=== PATIENT | female | born 1980 | race Caucasian/White ===

== ENCOUNTER 2020-01-10 10:58 | Emergency (ER) | payer BC, SELFPAY ==
[2020-01-10 11:22] VITALS: BP 127/57; PULSE 101; RESP 18; TEMP 37.9; O2SAT 99
--- NOTE | 2020-01-10 12:00 | ED.URI ---
HPI - URI/Sore Throat General Chief Complaint: Upper Respiratory Infection Stated Complaint: Cold/Flu Time Seen by Provider: 01/10/20 12:33 Source: patient History of Present Illness HPI Narrative: Patient presents with nasal congestion and head pressure bilateral ear pain. Patient states she is taking Sudafed with minimal relief in her symptoms. No fever no cough no shortness of breath no chest pain. MD elicited complaint: cough, rhinorrhea and nasal congestion Related Data Home Medications Medication Instructions Recorded Confirmed metformin 1,000 mg PO BID 01/10/20 01/10/20 Allergies Allergy/AdvReac Type Severity Reaction Status Date / Time No Known Allergies Allergy Verified 01/10/20 11:21 Review of Systems Review of Systems: Narrative: CONSTITUTIONAL: Denies chills, or sweats. Reports fever and generalized body aches EYES: Denies visual changes, redness, or discharge. ENT: Denies otalgia. Reports nasal congestion runny nose and sore throat CARDIOVASCULAR: Denies chest pain, palpitations, or edema. RESPIRATORY: Denies dyspnea. Reports occasional cough GASTROINTESTINAL: Denies abdominal pain, nausea, vomiting, or diarrhea. GENITOURINARY: Denies dysuria or hematuria. SKIN: Denies rash or itching. MUSCULOSKELETAL: Denies back pain, joint pain, or myalgia. Reports generalized body aches NEUROLOGIC: Denies headache, numbness, or weakness. PSYCHIATRIC: Denies anxiety or depression. All systems reviewed & are unremarkable except as noted in HPI and below PMFSH Comments At time of signature, agree with nursing past medical, surgical, social and family history. There is no relevant family history pertinent to the presenting complaint Exam Narrative: Exam Narrative: GENERAL APPEARANCE: The patient is a well-developed, well-nourished , in no acute distress. SKIN: Skin is warm and dry without erythema, swelling or exudate. There is good turgor. No tenting. HEAD: Atraumatic. Normocephalic. No temporal or scalp tenderness. EYES: Moist and bright. Sclera and conjunctivae normal. No discharge. PERRLA. Extraocular motions intact. Gross visual acuity intact. EARS: Pinna is normal shape and contour. Clear external auditory canals. Left TM pearly lazo with good cone of light, no erythema or suppuration. Right TM moderate erythremia with bulging bilateral cerumen noted no gross hearing deficit. NOSE: pink, moist mucosa with good air movement. Clear rhinorrhea without nasal flaring. Septum midline. Mouth: moist mucous membranes. THROAT; mild erythema noted to posterior oropharynx with moderate postnasal drainage. Without exudate or ulceration.. Uvula midline. Normal movement of soft palate. NECK: Supple and nontender with full range of motion without discomfort. No meningeal signs. LUNGS: Equal and bilateral breath sounds without wheezes, rales or rhonchi. CHEST: The chest wall is without retractions or use of accessory muscles. HEART: Has a regular rate and rhythm without murmur, gallops, click or rub. ABDOMEN: Soft, nontender with positive active bowel sounds. No rebound tenderness. EXTREMITIES: Without cyanosis, clubbing or edema. Equal 2+ distal pulses and 2 second capillary refill noted. NEUROLOGIC: alert, active, developmentally normal for age. The patient moves all extremities with normal muscle strength. Normal muscle tone is noted. Normal coordination is noted. NO focal neurological findings noted. Course Vital Signs Vital signs: Vital Signs Temperature 37.9 C H 01/10/20 11:22 Pulse Rate 101 H 01/10/20 11:22 Respiratory Rate 18 01/10/20 11:22 Blood Pressure 127/57 L 01/10/20 11:22 Pulse Oximetry 99 01/10/20 11:22 Temperature 37.9 C H 01/10/20 11:22 Pulse Rate 101 H 01/10/20 11:22 Respiratory Rate 18 01/10/20 11:22 Blood Pressure 127/57 L 01/10/20 11:22 Pulse Oximetry 99 01/10/20 11:22 Please TONY schedule a followup visit with your personal physician for further evaluation and treatment. In
== END 2020-01-10 12:35 | disposition home or self-care (01) ==
PROVIDERS: Emergency Provider Nurse Practitioner Family
DX: J06.9 Acute upper respiratory infection, unspecified (principal); H66.91 Otitis media, unspecified, right ear; Z98.84 Bariatric surgery status
CPT/HCPCS: 99213; G0463

== ENCOUNTER 2021-04-23 11:44 | Emergency (ER) | payer BC, SELFPAY ==
[2021-04-23 11:49] VITALS: BP 110/60; PULSE 98; RESP 16; TEMP 37.2; O2SAT 98
--- NOTE | 2021-04-23 12:13 | ED.SKABFB ---
HPI - Skin/Abscess/Foreign Bdy General Chief complaint: Skin/Abscess/Foreign Body Stated complaint: rash Time Seen by Provider: 04/23/21 11:55 Source: patient, RN notes reviewed and old records reviewed Mode of arrival: ambulatory Limitations: no limitations History of Present Illness HPI narrative: 40 year old female who [facility] with complaints of rash to lower abdomen skin fold and some also on lower back for the past 3-4 weeks. Patient states that she thinks that it could be fungal, she tried some OTC antifungal cream which did help some. Patient has lost 200 pounds after having gastric sleeve and has a lot of loose skin. Patient states that rash is itchy an at times it alaniz especially with palpation of skin area, rates the discomfort as 5/10. Patient denies any fevers ,chills or sweats, denies any new medications, lotions,detergents, soaps or foods or known exposure to poison plants. Patient stats that she recently completed Augmentin for sinus infection but has had this medication before with no allergic type of symptoms. MD complaint: rash Onset (ago): week(s) (3-4) Severity: moderate Severity scale (1-10): 5 Quality: burning and pruritic Pain Consistency: intermittent Relieving factors: topical medication (topical antifungal did help some) Exacerbating factors: palpation Associated symptoms: itching Treatments prior to arrival: Benadryl and other (OTC fungal cream) Related Data Home Medications Medication Instructions Recorded Confirmed metformin 1,000 mg PO DAILY 01/10/20 04/23/21 Allergies Allergy/AdvReac Type Severity Reaction Status Date / Time No Known Allergies Allergy Verified 04/23/21 11:57 Review of Systems Review of Systems: Narrative: CONSTITUTIONAL: Denies fever, chills, or sweats. EYES: Denies visual changes, redness, or discharge. ENT: Denies rhinorrhea, congestion, sore throat, or otalgia. CARDIOVASCULAR: Denies chest pain, palpitations, or edema. RESPIRATORY: Denies cough or dyspnea. GASTROINTESTINAL: Denies abdominal pain, nausea, vomiting, or diarrhea. GENITOURINARY: Denies dysuria or hematuria. SKIN positive red rash and itching to lower abdomen under skin fold and to lower back areas. MUSCULOSKELETAL: Denies back pain, joint pain, or myalgia. NEUROLOGIC: Denies headache, numbness, or weakness. PSYCHIATRIC: Denies anxiety or depression. All systems reviewed & are unremarkable except as noted in HPI and below PMFSH Past Medical History Medical History (Updated 04/26/21 @ 09:15 by Pooja Mcclure NP) History of PCOS Sinusitis Strep pharyngitis Surgical History Surgical History (Updated 04/26/21 @ 09:17 by Pooja Mcclure NP) History of bunionectomy of right great toe History of tympanoplasty Hx of cholecystectomy Status following gastric bypass for weight loss Social History Social History (Updated 04/23/21 @ 14:34 by Pooja Mcclure NP) Smoking status: Former smoker Additional smoking assessment comments: quit 2018 after smoking 25 years Alcohol intake: current Alcohol use details: rare social Substance use: never Living arrangements: with family Gender identity (if verbalized by the patient): Female Comments At time of signature, agree with nursing past medical, surgical, social and family history. There is no relevant family history pertinent to the presenting complaint Exam Narrative: Exam Narrative: GENERAL: Well-appearing, well-nourished, and in no acute distress. HEAD: Normocephalic, atraumatic. EYES: PERRLA and EOMI. ENT: Nares clear, no rhinorrhea or epistaxis. Mucous membranes moist. NECK: Supple. no lymphadenopathy CHEST: Clear to auscultation. No respiratory distress.SAO2 98% on room air HEART: Regular rate and rhythm. No murmur heard. Normal peripheral pulses. ABDOMEN: Soft, nontender, nondistended, normal active bowel sounds. EXTREMITIES: Normal range of motion. No edema. SKIN: Warm, dry, red raised patchy rash to lower
== END 2021-04-23 12:36 | disposition home or self-care (01) ==
PROVIDERS: Emergency Provider Registered Nurse; PCP Internal Medicine Infectious Disease
DX: B35.4 Tinea corporis (principal); Z87.891 Personal history of nicotine dependence; E28.2 Polycystic ovarian syndrome
CPT/HCPCS: 99213; G0463